=== PATIENT | female | born 1990 | race Caucasian/White ===

== ENCOUNTER → 2023-11-09 09:56 | Outpatient (REF) | payer OTHER, SELFPAY | LOC: PNTC 09:56 | PROVIDERS: ATTENDING PHYSICIAN Obstetrics & Gynecology | DX: Z36.82 Encounter for antenatal screening for nuchal translucency (principal); O99.210 Obesity complicating pregnancy, unspecified trimester; Z36.0 Encounter for antenatal screening for chromosomal anomalies | CPT/HCPCS: 76801; 76813 ==

== ENCOUNTER → 2023-12-06 06:59 | Outpatient (REF) | payer OTHER, SELFPAY | LOC: PNTC 06:59 | PROVIDERS: ATTENDING PHYSICIAN Obstetrics & Gynecology | DX: O99.210 Obesity complicating pregnancy, unspecified trimester (principal) | CPT/HCPCS: 76805 ==

== ENCOUNTER → 2024-01-05 10:26 | Outpatient (REF) | payer OTHER, SELFPAY | LOC: PNTC 10:26 | PROVIDERS: ATTENDING PHYSICIAN Obstetrics & Gynecology | DX: O99.210 Obesity complicating pregnancy, unspecified trimester (principal) | CPT/HCPCS: 76811 ==

== ENCOUNTER → 2024-02-07 13:28 | Outpatient (REF) | payer OTHER, SELFPAY | LOC: PNTC 13:28 | PROVIDERS: ATTENDING PHYSICIAN Obstetrics & Gynecology | DX: O99.210 Obesity complicating pregnancy, unspecified trimester (principal); Q27.0 Congenital absence and hypoplasia of umbilical artery | CPT/HCPCS: 76816 ==

== ENCOUNTER → 2024-03-06 10:30 | Outpatient (REF) | payer OTHER, SELFPAY | LOC: PNTC 10:30 | PROVIDERS: ATTENDING PHYSICIAN Obstetrics & Gynecology | DX: O99.210 Obesity complicating pregnancy, unspecified trimester (principal); O69.2XX0 Labor and delivery complicated by other cord entanglement, with compression, not applicable or unspecified | CPT/HCPCS: 76816 ==

== ENCOUNTER → 2024-04-05 15:25 | Outpatient (REF) | payer OTHER, SELFPAY | LOC: PNTC 15:25 | PROVIDERS: ATTENDING PHYSICIAN Obstetrics & Gynecology | DX: O09.519 Supervision of elderly primigravida, unspecified trimester (principal) | CPT/HCPCS: 59025 ==

== ENCOUNTER → 2024-04-12 15:33 | Outpatient (REF) | payer OTHER, SELFPAY | LOC: PNTC 15:33 | PROVIDERS: ATTENDING PHYSICIAN Obstetrics & Gynecology | DX: O09.529 Supervision of elderly multigravida, unspecified trimester (principal) | CPT/HCPCS: 59025 ==

== ENCOUNTER → 2024-04-19 15:04 | Outpatient (REF) | payer OTHER, SELFPAY | LOC: PNTC 15:04 | PROVIDERS: ATTENDING PHYSICIAN Obstetrics & Gynecology | DX: O09.519 Supervision of elderly primigravida, unspecified trimester (principal) | CPT/HCPCS: 59025; 76815 ==

== ENCOUNTER → 2024-04-24 15:23 | Outpatient (REF) | payer OTHER, SELFPAY | LOC: PNTC 15:23 | PROVIDERS: ATTENDING PHYSICIAN Obstetrics & Gynecology | DX: O09.529 Supervision of elderly multigravida, unspecified trimester (principal) | CPT/HCPCS: 59025; 76815 ==

== ENCOUNTER → 2024-05-03 15:24 | Outpatient (REF) | payer OTHER, SELFPAY | LOC: PNTC 15:24 | PROVIDERS: ATTENDING PHYSICIAN Obstetrics & Gynecology | DX: O09.519 Supervision of elderly primigravida, unspecified trimester (principal) | CPT/HCPCS: 59025 ==

== ENCOUNTER 2024-05-10 06:38 | Inpatient (IN) | payer OTHER, SELFPAY ==
[2024-05-10 07:04] VITALS: BP 111/62; BMI 49.3
[2024-05-10] MEDS: LR 1000 IV (07:39)
[2024-05-10 07:58] LABS: Hematocrit 34.6 % (37.0-47.0); Hemoglobin 11.5 g/dL (12.0-16.0); Mean Corp Hgb Conc. 33.2 g/dL (33.0-37.0); Mean Corpuscular Hgb 27.4 pg (27.0-31.0); Mean Corpuscular Volume 82.4 fL (81.0-99.0); Mean Platelet Volume 9.9 fL (7.4-10.4); Platelet Count 235 10^3/uL (130-400); Red Cell Dist. Width 13.4 % (11.5-14.5)
[2024-05-10] MEDS: ANCEF 15 MG IV (08:23)
[2024-05-10] MEDS: BICITRA 30 ML PO (08:23)
[2024-05-10] MEDS: TYLENOL 1000 MG PO (08:23)
[2024-05-10 10:25] LABS: Cord ABG B.E. - POC -1.3 mmol/L; Cord ABG HCO3 - POC 26 mmol/L; Cord ABG pCO2 - POC 50 mmHg; Cord ABG pH - POC 7.32; Cord ABG pO2 - POC 29 mmHg
[2024-05-10 10:34] LABS: Cord VBG B.E. - POC -3.2 mmol/L; Cord VBG HCO3 - POC 23 mmol/L; Cord VBG O2 Sat % - POC 49.8 %; Cord VBG pCO2 - POC 43 mmHg; Cord VBG pH - POC 7.33; Cord VBG pO2 - POC 29 mmHg
[2024-05-10] MEDS: PITOCIN 30 UNITS/NSS 500 ML IV ×2 (10:39→13:58)
[2024-05-10] MEDS: TORADOL 15 MG IV ×2 (16:51→23:11)
[2024-05-11 04:29] LABS: Hematocrit 33.8 % (37.0-47.0); Hemoglobin 11.2 g/dL (12.0-16.0); Mean Corp Hgb Conc. 33.1 g/dL (33.0-37.0); Mean Corpuscular Hgb 27.5 pg (27.0-31.0); Mean Corpuscular Volume 82.8 fL (81.0-99.0); Mean Platelet Volume 10.2 fL (7.4-10.4); Platelet Count 234 10^3/uL (130-400); Red Blood Cell Count 4.08 10^6/uL (4.20-5.40); Red Cell Dist. Width 13.5 % (11.5-14.5); White Blood Cell Count 14.6 10^3/uL (4.8-10.8)
[2024-05-11] MEDS: TORADOL 15 MG IV ×2 (04:49→11:09)
[2024-05-11] MEDS: MYLICON 80 MG PO (08:25)
[2024-05-11] MEDS: PRENATAL PLUS 1 TABLET PO (08:25)
--- NOTE | 2024-05-11 15:53 | W.PN.ANS.POP ---
Anesthesia Post Operative
- Anesthesia Post Op Note
Vital Signs Stable-See Nursing Note: Yes
Airway Patent: Yes
Adequate Pain Control: Yes
Change in Mental Status: No
Current Postoperative Nausea & Vomiting: No
Anesthesia Complications: No
General Anesthetic Recall: No
Unplanned Admission: No
Post Op Hydration Adequate: Yes
- -
Pt awake and alert- resting comfortably, doing well as per RN.
[2024-05-11 16:24] LABS: Syphilis/T. pallidum Ab Reflex Negative (Negative)
[2024-05-11] MEDS: TYLENOL 650 MG PO (23:05)
[2024-05-11] MEDS: MOTRIN 600 MG PO (23:05)
[2024-05-12] MEDS: MOTRIN 600 MG PO ×2 (05:31→11:48)
[2024-05-12] MEDS: TYLENOL 650 MG PO ×2 (05:31→11:48)
--- NOTE | 2024-05-12 08:39 | W.DS.TRANS ---
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
-
Discharge Instructions:
Discharge Diagnosis/Procedures primary cs
Diet No restrictions
Instructions:
Stand-Alone Forms: LDRP Delivery
Changes to Home Medications: No
Discharge Medications:
DC Medications w/original date entered in CRMnext
vits [id number] fum 27 mg iron-folic acid 800 mcg tablet ( Vitamin) 1 tab PO DAILY Supplement 05/10/24
ibuprofen 600 mg tablet 600 mg PO [id number] PRN cramps #90 tabs 05/12/24
Home Medication Changes
Pending Results: No
Total time spent discharging patient (in min): 20
[2024-05-12] MEDS: PRENATAL PLUS 1 TABLET PO (09:13)
[2024-05-12] MEDS: SENOKOT-S 1 TABLET PO (09:13)
== END 2024-05-12 13:27 | disposition home or self-care (01) | DRG 788 ==
LOC: LDRP 06:38
PROVIDERS: ADMITTING PHYSICIAN Obstetrics & Gynecology
PROC: 10D00Z1 Extraction of Products of Conception, Low, Open Approach (ICD-10-PCS; 2024-05-10)
DX: O32.8XX0 Maternal care for other malpresentation of fetus, not applicable or unspecified (principal); Z37.0 Single live birth; Z3A.39 39 weeks gestation of pregnancy; O99.214 Obesity complicating childbirth; E66.813 Obesity, class 3; O43.123 Velamentous insertion of umbilical cord, third trimester; O34.13 Maternal care for benign tumor of corpus uteri, third trimester; D25.9 Leiomyoma of uterus, unspecified
CPT/HCPCS: 88307; 36415; 85027; 86780; 86850; 86900; 86901

== ENCOUNTER → 2025-04-17 07:45 | Outpatient (REF) | payer OTHER, SELFPAY ==
[2025-04-17 09:24] LABS: Hematocrit 38.3 % (37.0-47.0); Hemoglobin 12.7 g/dL (12.0-16.0); Mean Corp Hgb Conc. 33.2 g/dL (33.0-37.0); Mean Corpuscular Volume 83.8 fL (81.0-99.0); Nucleated Red Blood Cells % 0 %; Platelet Count 288 10^3/uL (130-400); Red Cell Dist. Width 11.9 % (11.5-14.5)
[2025-04-17 09:43] LABS: ALT (SGPT) 34 U/L (0-35); AST (SGOT) 21 U/L (14-36); Albumin 4.4 g/dl (3.5-5.0); Alkaline Phosphatase 95 U/L (38-126); Blood Urea Nitrogen 10 mg/dl (7-17); Calcium 8.7 mg/dl (8.4-10.2); Carbon Dioxide 27 mmol/L (22-30); Chloride 104 mmol/L (98-107); Glucose 79 mg/dl (70-99); Potassium 4.3 mmol/L (3.5-5.1); Sodium 135 mmol/L (135-145); Total Protein 7.5 g/dl (6.3-8.2); eGFR > 60.00
== END ==
LOC: RAD 07:45
PROVIDERS: ATTENDING PHYSICIAN Nurse Practitioner Adult Health
DX: R10.32 Left lower quadrant pain (principal)
CPT/HCPCS: 36415; 74177; 80053; 85025; Q9967